=== PATIENT | male | born 1980 | race Caucasian/White ===

== ENCOUNTER 2023-01-19 07:19 | Day surgery (SDC) | payer OTHER ==
[~2023-01-19] VITALS: Ht 182.9 cm; Wt 86.3 kg
[2023-01-19] MEDS ORDERED: DIM (08:25)
[2023-01-19] MEDS ORDERED: ZINC15 (08:25)
[2023-01-19] MEDS ORDERED: MULVITA (08:25)
--- NOTE | 2023-01-19 09:53 | NUR ---
01/19/23 0953 Vernon Case 1 MG EPI ADDED TO THE FIRST BAG OF LR FOR IRRIGATION AT [facility], PER ORDER.
[2023-01-19 11:16] VITALS: BP 136/93
--- NOTE | 2023-01-19 14:17 | NUR ---
01/19/23 1417 Eze Dey PT COMPLAINED OF NAUSEA DURING SDU STAY. HE WAS MEDICATED WITH 0.625MG IV DROPERIDOL, PER DR. SMART ORDERS. PT REPORTED NAUSEA HAD RESOLVED FOLLOWING DROPERIDOL ADMINISTRATION. PT REPORTED 3/10 PAIN UPON D/C. HE DESCRIBED PAIN TOLERABLE AND EXPRESSED READINESS TO GO HOME. HE DENIED DIZZINESS.
== END 2023-01-19 13:25 | disposition home or self-care (01) ==
LOC: ORSCSDS 07:19
PROVIDERS: Orthopaedic Surgery
PROC: 0SQC4ZZ Repair Right Knee Joint, Percutaneous Endoscopic Approach (ICD-10-PCS; principal; 2023-01-19 09:15)
PROC: 0YBF0ZZ Excision of Right Knee Region, Open Approach (ICD-10-PCS; principal; 2023-01-19 09:15)
DX: M23.041 Cystic meniscus, anterior horn of lateral meniscus, right knee (principal); Z79.899 Other long term (current) drug therapy
CPT/HCPCS: C1713; J0171; J0690; J1100; J1790; J1885; J2405; J2704; J3010; J7120